=== PATIENT | male | born 1975 | race Caucasian/White ===

== ENCOUNTER 2017-12-13 13:36 | Emergency (ER) | payer MEDICAID, OTHER ==
[~2017-12-13] VITALS: Ht 182.9 cm; Wt 81.6 kg
[2017-12-13 13:45] VITALS: BP 112/84
--- NOTE | 2017-12-13 14:08 | Emergency Room Report ---
History of Present Illness General Chief Complaint: Medication Refill Source: Patient Present Illness HPI 42-year-old male patient presents to ER requesting medication refill for Xanax. Patient reports a history of generalized anxiety disorder. Patient reports that [place] and has not gotten a new primary care provider because he was a [facility] patient. Patient states that because he moved down here he lost [facility] coverage temporarily, reports that he has regained coverage and but doesn't have an appointment until January 20 with his new Provider. Patient reports he has gone to numerous ERs in the past few days trying to get treatment. Patient denies thoughts of suicide or homicidal ideation. Patient denies chest pain, shortness breath, fever, abdominal pain. Patient reports that he takes 1 mg of Xanax twice a day.. Allergies: Coded Allergies: No Known Allergies (Unverified , 12/13/17) Patient History Past Medical History: see triage record Reviewed Nursing Documentation: PMH: Agreed; PSxH: Agreed Nursing Documentation-PMH Past Medical History: No History, Except For History Of Psychiatric Problem: Yes - ANXIETY Review of Systems All Other Systems: negative except mentioned in HPI Physical Exam Vital Signs Date Time Temp Pulse Resp B/P (MAP) Pulse Ox O2 Delivery O2 Flow Rate FiO2 12/13/17 13:42 97.8 95 20 112/84 97 Room Air 97.9 Sp02 EP Interpretation: reviewed, normal General Appearance: well appearing, no apparent distress, alert, GCS 15, non- toxic Head: normocephalic, atraumatic Eyes: bilateral eye normal inspection, bilateral eye PERRL ENT: hearing grossly normal, normal pharynx, no angioedema, normal voice, uvula midline, moist mucus membranes Neck: full range of motion Respiratory: lungs clear, normal breath sounds, no rhonchi, no respiratory distress, no accessory muscle use, no wheezing, speaking full sentences Cardiovascular #1: regular rate, rhythm, no edema Musculoskeletal: back normal, digits/nails normal, gait/station normal, normal range of motion, non-tender Neurologic: alert, oriented x3, responsive, motor strength/tone normal, sensory intact Psychiatric: mood/affect normal, no suicidal/homicidal ideation Skin: no rash Medical Decision Making PA Attestation Dr. Lindo is my supervising Physician whom patient management has been discussed with. Diagnostic Impression: Primary Impression: Encounter for medication refill ER Course Pt. presents to the ED requesting prescription refill. Multiple differentials were considered. Vital signs: are WNL, pt. is afebrile CURES report shows numerous refills of medication over past month, consistent with patient history of medication refills. ORDERS: PE benign. lungs clear to auscultation. Denies thoughts of suicide or homicidal ideation. I do not believe the patient is a danger to himself or others. Informed patient would not provide refill of medication. Will provide single dose of medication in ER. Provided patient with contact information for mental health urgent care. for patient follow-up with there for treatment. Informed patient to follow up at scheduled appointment on January 20. Informed patient ER cannot provide prescription to discharge home with, Will not provide further medication upon return to ER for treatment of symptoms.. Contact primary care provider for further treatment. Informed patient ER cannot provide refills in the future; followup, management and prescription of long-term medications must be performed by primary care provider. Patient nontoxic appearing, okay for discharge, able ambulate without difficulty. DISCHARGE: No Rx provided at this time. At this time pt is stable for d/c to home. Patient is resting comfortably, in no acute distress, nontoxic appearing, talking without difficulty. Patient to take medications as instructed Will provide with patient care instructions and any necessary prescriptions. Care plan and follow-up instructions provided. Patient instructed to follow-up with primary care provider in 3 - 5 days. Patient questions asked and answered. Patient reports understanding and agreement to treatment plan. ER precautions given. Patient instructed to return to ER immediately for any new or worsening of symptoms including but not limited to increasing SOB, persistent fever. Last Vital Signs Date Time Temp Pulse Resp B/P (MAP) Pulse Ox O2 Delivery O2 Flow Rate FiO2 12/13/17 13:45 97.9 95 20 112/84 97 Room Air 97.9 Disposition: HOME, SELF-CARE Condition: Stable Patient Instructions: Medicine Refill at the Emergency Department Additional Instructions: Followup with primary care provider in 3 -5 days. Take medications as directed. Patient questions asked and answered. ER precautions given, patient instructed to return to ER immediately for any new or worsening of symptoms. Isiah Hatch Dec 13, 2017 14:08
[2017-12-13] MEDS ORDERED: ALPRAZolam 0.25mg tab ORAL ONE ×2 (14:15)
[2017-12-13 14:21] VITALS: BP 112/84
== END 2017-12-13 14:22 | disposition home or self-care (01) ==
LOC: EMR 14:06
DX: Z76.0 Encounter for issue of repeat prescription (principal); F41.9 Anxiety disorder, unspecified
CPT/HCPCS: 99282